=== PATIENT | female | born 1975 | race Caucasian/White ===

== ENCOUNTER 2021-01-28 03:14 | Inpatient (IN) | payer OTHER, SELFPAY ==
[2021-01-28] VITALS (7 sets, daily range): BP systolic 133–188; BP diastolic 78–91; PULSE 62–72; RESP 16; TEMP 36.1–36.7; O2SAT 96–98
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
--- NOTE | 2021-01-28 08:58 | PC.NURSE ---
pt signed a 3 day notice today on 01/28/2021. up on 02/02/2021.
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
[2021-01-28] MEDS: lisinopriL 5 MG TABLET PO (12:27)
[2021-01-28] MEDS: DULoxetine HCl 60 MG CAPSULE.DR PO ×2 (12:27→21:05)
[2021-01-28] MEDS: Levothyroxine Sodium 88 MCG TABLET PO (12:37)
[2021-01-28] MEDS: Metoprolol Succinate ER 100 MG TAB.ER.24H PO (12:38)
[2021-01-28] MEDS: Clopidogrel Bisulfate 75 MG TABLET PO (12:39)
[2021-01-28] MEDS: Gabapentin 100 MG CAPSULE PO ×2 (12:39→21:05)
[2021-01-28] MEDS: Fluticasone Propionate Nasal 16 GM SPRAY 2 SPRAY NOSTRIL-B (12:40)
[2021-01-28] MEDS: cloNIDine HCL 0.1 MG TABLET PO ×2 (12:49→17:10)
[2021-01-28] MEDS: QUEtiapine Fumarate 100 MG TABLET PO (21:05)
[2021-01-28] MEDS: Atorvastatin Calcium 80 MG TABLET PO (21:05)
[2021-01-28] MEDS: Doxazosin Mesylate 1 MG TABLET 3 MG PO (21:05)
--- NOTE | 2021-01-28 21:51 | PC.NURSE ---
Pt roommate came out of her room and notified staff that she was attempting to tie her bed sheet around her neck between the bed and wall. Staff responded and found her with her bed sheet loosely around her neck, gripping it closely around her neck. Staff grabbed the bed sheet from her. Pt was not in respiratory distress and no redness or markings noted around her neck. Pt reported I am just upset that my dog was taken away . Vitals were taken- WNL. A 1:1 person was placed at this time. After pt was calm t/w was able to speak with her and completed with her assistance a treatment plan to contract for safety. Pt signed treatment plan and agreed to stay visible. Contract placed in chart and safety tool updated. Pt has been visible in the kitchen and participated in group this evening after episode. Placed on 5 min locked bathroom. Sheets and pillowcases were removed from her possession per agreement. Provided heavy blankets for safety and comfort. Nursing supervisor engines road and MD concrete rod buster notified of all events. Will continue to monitor closely.
[2021-01-29 06:00] VITALS: BP 146/88; PULSE 90; RESP 20; TEMP 36; O2SAT 98
[2021-01-29] MEDS: Gabapentin 100 MG CAPSULE PO ×2 (08:28→20:47)
[2021-01-29] MEDS: ARIPiprazole 5 MG TABLET PO (08:29)
[2021-01-29] MEDS: Clopidogrel Bisulfate 75 MG TABLET PO (08:29)
[2021-01-29] MEDS: DULoxetine HCl 60 MG CAPSULE.DR PO ×2 (08:29→20:48)
[2021-01-29] MEDS: lisinopriL 5 MG TABLET PO (08:29)
[2021-01-29] MEDS: Metoprolol Succinate ER 100 MG TAB.ER.24H PO (08:30)
[2021-01-29] MEDS: Levothyroxine Sodium 88 MCG TABLET PO (08:30)
[2021-01-29] MEDS: Fluticasone Propionate Nasal 16 GM SPRAY 2 SPRAY NOSTRIL-B (08:31)
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
[2021-01-29] MEDS: cloNIDine HCL 0.1 MG TABLET PO (15:02)
--- NOTE | 2021-01-29 16:48 | HO.PSYCHPN ---
Subjective Subjective Date of Service: 01/29/21 Reason For Visit: 296.30/F33.9 - major depressive disorder Subjective Notes: 3 Day (02/03/21) Healthcare Proxy: No Guardianship: No Medical Problems Affecting Mental Status: No Interim History: Guarded, irritable, evasive- I am leaving on 02/03. Declines medication adjustments, declines to discuss precipitants to admission. Focus in on her dog, Sofia May Facto, and not knowing if she is OK. We were able to call the kennel and they assured pt that Sofia is homesick but well and they will be taking care of her until pt is discharged. Pt more relieved after this-states he med regime works, that the crisis team over-reacted to her presenting issues and she does feel better- but this place is insane (appropriate response to an intense day). Medication Compliance: Yes Side effects from medications: No Attending Groups: No Review of Systems Acute medical concerns: No Medical Review of Systems: unchanged Review of Systems Reports behavioral changes Psychiatric: Reports anxiety, Reports behavioral changes, Reports depression, Reports irritability and Reports suicidal ideation (denies) Mental Status Exam Mental Status Exam Patient Appearance: Disheveled Patient Orientation: Person, Place, Time and Situation Level of Consciousness: Alert Patient Behavior: Guarded and Good Eye Contact Mood Description: Constricted Affect Description: Constricted Patient Cognition Impaired: No Ability to Follow Directions: Good Speech Pattern: Spontaneous Speech Memory Description: Intact Hallucinations: None Delusions: Not Present Perceptual Disturbances: Depersonalization Thought Process: Goal Oriented Thought Content: positive for Circumstantial and positive for Goal Oriented Depressive Symptoms: Increased Anxiety, Increased Irritability and Thoughts of /Suicide (denies) Judgement: Fair Diagnostics Vital Signs (24Hr): Vital Signs - 24 hr 01/28/21 17:10 01/28/21 17:14 01/28/21 21:05 Temperature 98.0 F Pulse Rate 62 62 62 Respiratory Rate Blood Pressure 188/80 H 188/80 H 146/78 H Pulse Oximetry 98 01/29/21 06:00 Temperature 96.8 F Pulse Rate 90 Respiratory Rate 20 Blood Pressure 146/88 H Pulse Oximetry 98 Medications Medications Current Medications Acetaminophen (Acetaminophen 325 Mg Tablet) 650 mg PO Q6H PRN PRN Reason: Headache/Pain Mild Scale (1-3) Al Hydroxide/Mg Hydroxide (Magnesium Hydrox/Alum Hydrox 30 Ml Oral.Susp) 30 ml PO Q6H PRN PRN Reason: Heartburn/Nausea Aripiprazole (Aripiprazole 5 Mg Tablet) 5 mg PO DAILY [facility] Last Admin: 01/29/21 08:29 Dose: 5 mg Documented by: Atorvastatin Calcium (Atorvastatin Calcium 80 Mg Tablet) 80 mg PO BEDTIME [facility] Last Admin: 01/28/21 21:05 Dose: 80 mg Documented by: Clonidine HCl (Clonidine Hcl 0.1 Mg Tablet) 0.1 mg PO TID PRN; Protocol PRN Reason: Anxiety Last Admin: 01/29/21 15:02 Dose: 0.1 mg Documented by: Clopidogrel Bisulfate (Clopidogrel Bisulfate 75 Mg Tablet) 75 mg PO DAILY [facility] Last Admin: 01/29/21 08:29 Dose: 75 mg Documented by: Doxazosin Mesylate (Doxazosin Mesylate 1 Mg Tablet) 3 mg PO BEDTIME [facility]; Protocol Last Admin: 01/28/21 21:05 Dose: 3 mg Documented by: Duloxetine HCl (Duloxetine Hcl 60 Mg Capsule.Dr) 60 mg PO BID [facility] Last Admin: 01/29/21 08:29 Dose: 60 mg Documented by: Fluticasone Propionate (Fluticasone Propionate Nasal 16 Gm [place]) 2 spray NOSTRIL-B DAILY [facility] Last Admin: 01/29/21 08:31 Dose: 2 spray Documented by: Gabapentin (Gabapentin 100 Mg Capsule) 100 mg PO BID [facility] Last Admin: 01/29/21 08:28 Dose: 100 mg Documented by: Hydroxyzine HCl (Hydroxyzine Hcl 25 Mg Tablet) 25 mg PO BEDTIME PRN PRN Reason: Anxiety Levothyroxine Sodium (Levothyroxine Sodium 88 Mcg Tablet) 88 mcg PO DAILY [facility] Last Admin: 01/29/21 08:30 Dose: 88 mcg Documented by: Lisinopril (Lisinopril 5 Mg Tablet) 5 mg PO DAILY [facility]; Protocol Last Admin: 01/29/21 08:29 Dose: 5 mg Documented by: Magnesium Hydroxide (Milk Of Magnesia 30 Ml Oral.Susp) 30 ml PO DAILY PRN PRN Reason: Constipation Metoprolol Succinate (Metoprolol Succinate Er 100 Mg Tab.Er.24h) 100 mg PO DAILY [facility]; Protocol Last Admin: 01/29/21 08:30 Dose: 100 mg Documented by: Nicotine Polacrilex (Nicotine Polacrilex 2 Mg Gum) 2 mg BUCCAL Q2H PRN PRN Reason: Nicotine Cravings Quetiapine Fumarate (Quetiapine Fumarate 100 Mg Tablet) 100 mg PO BEDTIME [facility] Last Admin: 01/28/21 21:05 Dose: 100 mg Documented by: Trazodone HCl (Trazodone Hcl 50 Mg Tablet) 50 mg PO BEDTIME PRN PRN Reason: Insomnia Allergies Allergies Allergy/AdvReac Type Severity Reaction Status Date / Time amphetamine [From Adderall] Allergy Unknown unknown Unverified 01/28/21 12:31 aspirin Allergy Unknown unknown Unverified 01/28/21 12:30 black pepper Allergy Unknown unknown Unverified 01/28/21 12:32 dextroamphetamine Allergy Unknown unknown Unverified 01/28/21 12:31 [From Adderall] fluoxetine [From Prozac] Allergy Unknown Unknown Unverified 01/28/21 12:30 trazodone Allergy Unknown Unknown Unverified 01/28/21 12:31 kcl Allergy Unknown throat Uncoded 01/28/21 12:31 irritation/ Assessment & Plan Assessment & Plan (1) PTSD (post-traumatic stress disorder): Status: Acute Code(s): F43.10 - Post-traumatic stress disorder, unspecified (2) Major depressive disorder, recurrent severe without psychotic features: Status: Acute Code(s): F33.2 - Major depressive disorder, recurrent severe without psychotic features Assessment and Plan: -Continue current regime -Attempt to form alliance -Collateral contact Assessment and Plan: 45-year-old female with hypertension, hyperlipidemia, CAD status post [place] about 4 years ago she takes Plavix, allergic to aspirin, here with depression with SI 1/ CAD-- no chest pain, no shortness of breath. Continue med with Plavix, metoprolol, statin 2/ hypertension continue metoprolol, lisinopril, clonidine now, 3/ hypothyroidism continue levothyroxine 4/hyperlipidemia continue Lipitor 5/depression/suicidal ideation-- management by psych. I spent 40 minutes with the patient and/or on the patient floor today, greater than?50% of which was spent counseling/coordinating care. Patient educated on: therapeutic strategies Informed Consent: understands and further education needed Reason for contiued inpatient stay Substantial Risk for: harm to self, inability to function and rapid decompensation
[2021-01-29 20:30] VITALS: BP 118/81; PULSE 76; TEMP 36.7
[2021-01-29 20:46] VITALS: BP 118/81; PULSE 76
[2021-01-29] MEDS: Doxazosin Mesylate 1 MG TABLET 3 MG PO (20:46)
[2021-01-29] MEDS: QUEtiapine Fumarate 100 MG TABLET PO (20:46)
[2021-01-29] MEDS: Atorvastatin Calcium 80 MG TABLET PO (20:47)
[2021-01-30 06:00] VITALS: BP 124/58; PULSE 86; RESP 18; TEMP 36.9; O2SAT 95
[2021-01-30 08:43] VITALS: BP 144/90; PULSE 81
[2021-01-30] MEDS: Levothyroxine Sodium 88 MCG TABLET PO (08:43)
[2021-01-30] MEDS: Clopidogrel Bisulfate 75 MG TABLET PO (08:43)
[2021-01-30] MEDS: ARIPiprazole 5 MG TABLET PO (08:43)
[2021-01-30] MEDS: lisinopriL 5 MG TABLET PO (08:43)
[2021-01-30] MEDS: Metoprolol Succinate ER 100 MG TAB.ER.24H PO (08:43)
[2021-01-30] MEDS: DULoxetine HCl 60 MG CAPSULE.DR PO ×2 (08:43→20:14)
[2021-01-30] MEDS: Gabapentin 100 MG CAPSULE PO ×2 (08:44→11:07)
[2021-01-30] MEDS: Fluticasone Propionate Nasal 16 GM SPRAY 2 SPRAY NOSTRIL-B (08:45)
[2021-01-30 08:47] VITALS: BP 144/90; PULSE 81
[2021-01-30] MEDS: cloNIDine HCL 0.1 MG TABLET PO ×2 (08:47→16:19)
--- NOTE | 2021-01-30 12:30 | P.PNPSI_ITS ---
Subjective Subjective Date of Service: 01/30/21 Reason For Visit: 296.30/F33.9 - major depressive disorder Subjective Notes: 3 Day Healthcare Proxy: No Guardianship: No Medical Problems Affecting Mental Status: No Interim History: Patient found lying between bed and wall- feels safer there- Reports feeling better but mentioned we have her medications wrong- gabapentin was 100 bid and 200mg qhs which - I changed it to Also discussed with pt inc abilifnina to 7.5mg - which she agreed to don't know if it would help her flashbacks/ but might help depression denies current si/sib will unlock bathroom and see how that day goes for her tomorrow may be able to advance to 15min checks Medication Compliance: Yes Side effects from medications: No Attending Groups: No Review of Systems Acute medical concerns: No Medical Review of Systems: unchanged Review of Systems Review of Systems reviewed cpe by dr espinosa Mental Status Exam Mental Status Exam Narrative: patient with better eye contact today, denying current sib/si feels could talk to staff if felt unsafe no further attempts to strangle herself with sheets/pillow case. Patient Appearance: Appropriate Patient Orientation: Person, Place, Time and Situation Level of Consciousness: Awake Patient Behavior: Guarded, Cooperative and Passive Mood Description: Anxious Affect Description: Blunted Patient Cognition Impaired: No Ability to Follow Directions: Good Speech Pattern: Clear Hallucinations: Visual (still having flashbacks) Delusions: Not Present Thought Process: Intact Thought Content: positive for Intact Judgement: Fair Diagnostics Vital Signs (24Hr): Vital Signs - 24 hr 01/29/21 20:30 01/29/21 20:46 01/30/21 06:00 Temperature 98.1 F 98.4 F Pulse Rate 76 76 86 Respiratory Rate 18 Blood Pressure 118/81 118/81 124/58 L Pulse Oximetry 95 01/30/21 08:43 01/30/21 08:47 Temperature Pulse Rate 81 81 Respiratory Rate Blood Pressure 144/90 H 144/90 H Pulse Oximetry Medications Medications Current Medications Acetaminophen (Acetaminophen 325 Mg Tablet) 650 mg PO Q6H PRN PRN Reason: Headache/Pain Mild Scale (1-3) Al Hydroxide/Mg Hydroxide (Magnesium Hydrox/Alum Hydrox 30 Ml Oral.Susp) 30 ml PO Q6H PRN PRN Reason: Heartburn/Nausea Aripiprazole (Aripiprazole 5 Mg Tablet) 5 mg PO DAILY [facility] Last Admin: 01/30/21 08:43 Dose: 5 mg Documented by: Atorvastatin Calcium (Atorvastatin Calcium 80 Mg Tablet) 80 mg PO BEDTIME [facility] Last Admin: 01/29/21 20:47 Dose: 80 mg Documented by: Clonidine HCl (Clonidine Hcl 0.1 Mg Tablet) 0.1 mg PO TID PRN; Protocol PRN Reason: Anxiety Last Admin: 01/30/21 08:47 Dose: 0.1 mg Documented by: Clopidogrel Bisulfate (Clopidogrel Bisulfate 75 Mg Tablet) 75 mg PO DAILY [facility] Last Admin: 01/30/21 08:43 Dose: 75 mg Documented by: Doxazosin Mesylate (Doxazosin Mesylate 1 Mg Tablet) 3 mg PO BEDTIME [facility]; Protocol Last Admin: 01/29/21 20:46 Dose: 3 mg Documented by: Duloxetine HCl (Duloxetine Hcl 60 Mg Capsule.Dr) 60 mg PO BID [facility] Last Admin: 01/30/21 08:43 Dose: 60 mg Documented by: Fluticasone Propionate (Fluticasone Propionate Nasal 16 Gm [place]) 2 spray NOSTRIL-B DAILY [facility] Last Admin: 01/30/21 08:45 Dose: 2 spray Documented by: Gabapentin (Gabapentin 100 Mg Capsule) 200 mg PO BEDTIME [facility] Gabapentin (Gabapentin 100 Mg Capsule) 100 mg PO TIDWM [facility] Last Admin: 01/30/21 11:07 Dose: 100 mg Documented by: Hydroxyzine HCl (Hydroxyzine Hcl 25 Mg Tablet) 25 mg PO BEDTIME PRN PRN Reason: Anxiety Levothyroxine Sodium (Levothyroxine Sodium 88 Mcg Tablet) 88 mcg PO DAILY [facility] Last Admin: 01/30/21 08:43 Dose: 88 mcg Documented by: Lisinopril (Lisinopril 5 Mg Tablet) 5 mg PO DAILY [facility]; Protocol Last Admin: 01/30/21 08:43 Dose: 5 mg Documented by: Magnesium Hydroxide (Milk Of Magnesia 30 Ml Oral.Susp) 30 ml PO DAILY PRN PRN Reason: Constipation Metoprolol Succinate (Metoprolol Succinate Er 100 Mg Tab.Er.24h) 100 mg PO DAILY [facility]; Protocol Last Admin: 01/30/21 08:43 Dose: 100 mg Documented by: Nicotine Polacrilex (Nicotine Polacrilex 2 Mg Gum) 2 mg BUCCAL Q2H PRN PRN Reason: Nicotine Cravings Quetiapine Fumarate (Quetiapine Fumarate 100 Mg Tablet) 100 mg PO BEDTIME [facility] Last Admin: 01/29/21 20:46 Dose: 100 mg Documented by: Trazodone HCl (Trazodone Hcl 50 Mg Tablet) 50 mg PO BEDTIME PRN PRN Reason: Insomnia Allergies Allergies Allergy/AdvReac Type Severity Reaction Status Date / Time amphetamine [From Adderall] Allergy Unknown unknown Unverified 01/28/21 12:31 aspirin Allergy Unknown unknown Unverified 01/28/21 12:30 black pepper Allergy Unknown unknown Unverified 01/28/21 12:32 dextroamphetamine Allergy Unknown unknown Unverified 01/28/21 12:31 [From Adderall] fluoxetine [From Prozac] Allergy Unknown Unknown Unverified 01/28/21 12:30 trazodone Allergy Unknown Unknown Unverified 01/28/21 12:31 kcl Allergy Unknown throat Uncoded 01/28/21 12:31 irritation/ Assessment & Plan Assessment & Plan (1) PTSD (post-traumatic stress disorder): Status: Acute Code(s): F43.10 - Post-traumatic stress disorder, unspecified Assessment and Plan: ongoing flashbacks working on calming herself- making herself feel safe (2) Major depressive disorder, recurrent severe without psychotic features: Status: Acute Code(s): F33.2 - Major depressive disorder, recurrent severe without psychotic features Assessment and Plan: -Continue current regime -Attempt to form alliance -Collateral contact Assessment and Plan: Pt feeling improved with care, and willing to inc abilify I spent minutes with the patient and/or on the patient floor today, greater than?50% of which was spent counseling/coordinating care. Patient educated on: medication risk/benefits Informed Consent: understands Reason for contiued inpatient stay Substantial Risk for: harm to self, inability to function and rapid decompensation
[2021-01-30] MEDS: ARIPiprazole 2 MG TABLET PO (13:48)
[2021-01-30 16:19] VITALS: BP 131/84; PULSE 78
[2021-01-30 19:20] VITALS: BP 102/57; PULSE 98; RESP 18; TEMP 36.8; O2SAT 97
[2021-01-30] MEDS: QUEtiapine Fumarate 100 MG TABLET PO (20:13)
[2021-01-30] MEDS: Atorvastatin Calcium 80 MG TABLET PO (20:13)
[2021-01-30] MEDS: Gabapentin 100 MG CAPSULE 200 MG PO (20:13)
[2021-01-30 20:14] VITALS: BP 102/57; PULSE 79
[2021-01-30] MEDS: Doxazosin Mesylate 1 MG TABLET 3 MG PO (20:14)
[2021-01-31 06:00] VITALS: BP 106/56; PULSE 89; RESP 16; TEMP 36.4; O2SAT 96
[2021-01-31] MEDS: Fluticasone Propionate Nasal 16 GM SPRAY 2 SPRAY NOSTRIL-B (08:30)
[2021-01-31] MEDS: DULoxetine HCl 60 MG CAPSULE.DR PO ×2 (08:30→20:17)
[2021-01-31 08:31] VITALS: BP 125/73; PULSE 77
[2021-01-31] MEDS: Levothyroxine Sodium 88 MCG TABLET PO (08:31)
[2021-01-31] MEDS: Clopidogrel Bisulfate 75 MG TABLET PO (08:31)
[2021-01-31] MEDS: ARIPiprazole 5 MG TABLET 7.5 MG PO (08:31)
[2021-01-31] MEDS: Metoprolol Succinate ER 100 MG TAB.ER.24H PO (08:31)
[2021-01-31] MEDS: Gabapentin 100 MG CAPSULE PO ×2 (08:31→13:41)
[2021-01-31] MEDS: lisinopriL 5 MG TABLET PO (08:31)
[2021-01-31 08:39] VITALS: BP 125/73; PULSE 77
[2021-01-31] MEDS: cloNIDine HCL 0.1 MG TABLET PO (08:39)
--- NOTE | 2021-01-31 11:03 | HO.PSYCHPN ---
Subjective Subjective Date of Service: 01/31/21 Reason For Visit: 296.30/F33.9 - major depressive disorder Subjective Notes: 3 Day Healthcare Proxy: No Guardianship: No Medical Problems Affecting Mental Status: No Interim History: Pt reports disappointment about groups and coping not happening this weekend- went to group and did psyched re medications REquested haldol prn 1mg suggested she try it with benztropine- Medication Compliance: Yes Side effects from medications: No Attending Groups: Yes Review of Systems Acute medical concerns: No Medical Review of Systems: unchanged Mental Status Exam Mental Status Exam Narrative: feeling helped by roommate conversations Patient Appearance: Well Grooomed Patient Orientation: Person, Place and Situation Level of Consciousness: Awake Patient Behavior: Appropriate Mood Description: Withdrawn and Anxious Affect Description: Constricted Patient Cognition Impaired: No Ability to Follow Directions: Good Speech Pattern: Clear Hallucinations: None Delusions: Not Present Thought Process: Intact Thought Content: positive for Intact Depressive Symptoms: Unhappiness Judgement: Fair Diagnostics Vital Signs (24Hr): Vital Signs - 24 hr 01/30/21 16:19 01/30/21 19:20 01/30/21 20:14 Temperature 98.3 F Pulse Rate 78 98 79 Respiratory Rate 18 Blood Pressure 131/84 102/57 L 102/57 L Pulse Oximetry 97 01/31/21 06:00 01/31/21 08:31 01/31/21 08:39 Temperature 97.6 F Pulse Rate 89 77 77 Respiratory Rate 16 Blood Pressure 106/56 L 125/73 125/73 Pulse Oximetry 96 Medications Medications Current Medications Acetaminophen (Acetaminophen 325 Mg Tablet) 650 mg PO Q6H PRN PRN Reason: Headache/Pain Mild Scale (1-3) Al Hydroxide/Mg Hydroxide (Magnesium Hydrox/Alum Hydrox 30 Ml Oral.Susp) 30 ml PO Q6H PRN PRN Reason: Heartburn/Nausea Aripiprazole (Aripiprazole 5 Mg Tablet) 7.5 mg PO DAILY [facility] Last Admin: 01/31/21 08:31 Dose: 7.5 mg Documented by: Atorvastatin Calcium (Atorvastatin Calcium 80 Mg Tablet) 80 mg PO BEDTIME [facility] Last Admin: 01/30/21 20:13 Dose: 80 mg Documented by: Clonidine HCl (Clonidine Hcl 0.1 Mg Tablet) 0.1 mg PO TID PRN; Protocol PRN Reason: Anxiety Last Admin: 01/31/21 08:39 Dose: 0.1 mg Documented by: Clopidogrel Bisulfate (Clopidogrel Bisulfate 75 Mg Tablet) 75 mg PO DAILY [facility] Last Admin: 01/31/21 08:31 Dose: 75 mg Documented by: Doxazosin Mesylate (Doxazosin Mesylate 1 Mg Tablet) 3 mg PO BEDTIME [facility]; Protocol Last Admin: 01/30/21 20:14 Dose: 3 mg Documented by: Duloxetine HCl (Duloxetine Hcl 60 Mg Capsule.Dr) 60 mg PO BID [facility] Last Admin: 01/31/21 08:30 Dose: 60 mg Documented by: Fluticasone Propionate (Fluticasone Propionate Nasal 16 Gm [place]) 2 spray NOSTRIL-B DAILY [facility] Last Admin: 01/31/21 08:30 Dose: 2 spray Documented by: Gabapentin (Gabapentin 100 Mg Capsule) 200 mg PO BEDTIME [facility] Last Admin: 01/30/21 20:13 Dose: 200 mg Documented by: Gabapentin (Gabapentin 100 Mg Capsule) 100 mg PO BID@0830,1430 [facility] Last Admin: 01/31/21 08:31 Dose: 100 mg Documented by: Hydroxyzine HCl (Hydroxyzine Hcl 25 Mg Tablet) 25 mg PO BEDTIME PRN PRN Reason: Anxiety Levothyroxine Sodium (Levothyroxine Sodium 88 Mcg Tablet) 88 mcg PO DAILY [facility] Last Admin: 01/31/21 08:31 Dose: 88 mcg Documented by: Lisinopril (Lisinopril 5 Mg Tablet) 5 mg PO DAILY [facility]; Protocol Last Admin: 01/31/21 08:31 Dose: 5 mg Documented by: Magnesium Hydroxide (Milk Of Magnesia 30 Ml Oral.Susp) 30 ml PO DAILY PRN PRN Reason: Constipation Metoprolol Succinate (Metoprolol Succinate Er 100 Mg Tab.Er.24h) 100 mg PO DAILY [facility]; Protocol Last Admin: 01/31/21 08:31 Dose: 100 mg Documented by: Nicotine Polacrilex (Nicotine Polacrilex 2 Mg Gum) 2 mg BUCCAL Q2H PRN PRN Reason: Nicotine Cravings Quetiapine Fumarate (Quetiapine Fumarate 100 Mg Tablet) 100 mg PO BEDTIME [facility] Last Admin: 01/30/21 20:13 Dose: 100 mg Documented by: Trazodone HCl (Trazodone Hcl 50 Mg Tablet) 50 mg PO BEDTIME PRN PRN Reason: Insomnia Allergies Allergies Allergy/AdvReac Type Severity Reaction Status Date / Time amphetamine [From Adderall] Allergy Unknown unknown Unverified 01/28/21 12:31 aspirin Allergy Unknown unknown Unverified 01/28/21 12:30 black pepper Allergy Unknown unknown Unverified 01/28/21 12:32 dextroamphetamine Allergy Unknown unknown Unverified 01/28/21 12:31 [From Adderall] fluoxetine [From Prozac] Allergy Unknown Unknown Unverified 01/28/21 12:30 trazodone Allergy Unknown Unknown Unverified 01/28/21 12:31 kcl Allergy Unknown throat Uncoded 01/28/21 12:31 irritation/ Assessment & Plan Assessment & Plan (1) PTSD (post-traumatic stress disorder): Status: Acute Code(s): F43.10 - Post-traumatic stress disorder, unspecified Assessment and Plan: ongoing flashbacks working on calming herself- making herself feel safe 01/31/21 requesting prn low dose haldol for anxiety=- (2) Major depressive disorder, recurrent severe without psychotic features: Status: Acute Code(s): F33.2 - Major depressive disorder, recurrent severe without psychotic features Assessment and Plan: -Continue current medications continue to encourage groups once more frequent - Assessment and Plan: denies s/e from inc abilify to 7.5mg with add on prn haldol will be on 3 antipsychotics- I spent minutes with the patient and/or on the patient floor today, greater than?50% of which was spent counseling/coordinating care. Patient educated on: medication risk/benefits Informed Consent: understands and further education needed (re 3 antipsychotics- ? dc abilify if haldol helpful) Reason for contiued inpatient stay Substantial Risk for: harm to self
[2021-01-31] MEDS: HaloperidoL 1 MG TABLET PO ×2 (13:41→18:46)
[2021-01-31] MEDS: Benztropine Mesylate 0.5 MG TABLET PO (13:41)
[2021-01-31 18:00] VITALS: BP 131/75; PULSE 73; RESP 16; TEMP 36.8; O2SAT 98
[2021-01-31 20:16] VITALS: BP 134/61; PULSE 73
[2021-01-31] MEDS: Doxazosin Mesylate 1 MG TABLET 3 MG PO (20:16)
[2021-01-31] MEDS: QUEtiapine Fumarate 100 MG TABLET PO (20:17)
[2021-01-31] MEDS: Gabapentin 100 MG CAPSULE 200 MG PO (20:17)
[2021-01-31] MEDS: Atorvastatin Calcium 80 MG TABLET PO (20:17)
[2021-02-01 06:00] VITALS: BP 149/63; PULSE 86; RESP 18; TEMP 37.1; O2SAT 96
[2021-02-01 08:54] VITALS: BP 149/63; PULSE 86
[2021-02-01] MEDS: Fluticasone Propionate Nasal 16 GM SPRAY 2 SPRAY NOSTRIL-B (08:54)
[2021-02-01] MEDS: Metoprolol Succinate ER 100 MG TAB.ER.24H PO (08:54)
[2021-02-01 08:55] VITALS: BP 149/63; PULSE 86
[2021-02-01] MEDS: DULoxetine HCl 60 MG CAPSULE.DR PO ×2 (08:55→19:54)
[2021-02-01] MEDS: lisinopriL 5 MG TABLET PO (08:55)
[2021-02-01] MEDS: Clopidogrel Bisulfate 75 MG TABLET PO (08:55)
[2021-02-01] MEDS: Gabapentin 100 MG CAPSULE PO ×2 (08:56→14:56)
[2021-02-01] MEDS: HaloperidoL 1 MG TABLET PO ×3 (08:56→17:40)
[2021-02-01] MEDS: ARIPiprazole 5 MG TABLET 7.5 MG PO (08:56)
[2021-02-01] MEDS: Levothyroxine Sodium 88 MCG TABLET PO (09:21)
--- NOTE | 2021-02-01 13:14 | P.PNPSI_ITS ---
Subjective Subjective Date of Service: 02/01/21 Reason For Visit: 296.30/F33.9 - major depressive disorder Subjective Notes: Conditional Voluntary and 3 Day Healthcare Proxy: No Guardianship: No Medical Problems Affecting Mental Status: No Interim History: TDSiri 02/02/21. Pt denies SI. Reports she is tolerating Abilify increase and finds prn Haldol very helpful. Discussed use of three antipsychotic agents (Abilify, Haldol, Seroquel). Education provided on use of multiple agents. Pt will discuss with her prescriber, however, she believes she may stop Abilify-encouraged to discuss with out patient team-she finds Haldol stronger with improved targeting of symptoms. Discussed diagnostics prior to discharge-she agrees-will order and follow with pt upon discharge. Pt participating in groups-team reports she did very well in medication education group over the weekend. Pt looking to attend more groups-states she wishes there were more coping skills groups on the unit. Feels prepared to discharge, pleased to be going to flower buncher or picker her service dog Sofia. Pt reports feeling safe and prepared to leave. Message left for pt's OP team [phone] to review admission and changes to regime. Medication Compliance: Yes Side effects from medications: No Attending Groups: Yes Review of Systems Acute medical concerns: No Medical Review of Systems: unchanged Review of Systems Psychiatric: Reports no additional psychiatric complaints Mental Status Exam Mental Status Exam Patient Appearance: Appropriate Patient Orientation: Person, Place, Time and Situation Level of Consciousness: Awake and Alert Patient Behavior: Appropriate, Talkative, Cooperative and Good Eye Contact Mood Description: Appropriate Affect Description: Appropriate Patient Cognition Impaired: No Ability to Follow Directions: Good Speech Pattern: Spontaneous Speech Memory Description: Intact Hallucinations: None Delusions: Not Present Thought Process: Intact and Goal Oriented Thought Content: positive for Intact, positive for Goal Oriented and positive for Suicidal Ideation (denies) Judgement: Good Diagnostics Vital Signs (24Hr): Vital Signs - 24 hr 01/31/21 18:00 01/31/21 20:16 02/01/21 06:00 Temperature 98.2 F 98.7 F Pulse Rate 73 73 86 Respiratory Rate 16 18 Blood Pressure 131/75 134/61 149/63 H Pulse Oximetry 98 96 02/01/21 08:54 02/01/21 08:55 Temperature Pulse Rate 86 86 Respiratory Rate Blood Pressure 149/63 H 149/63 H Pulse Oximetry Labs Labs: On 02/02/21 will order EKG, CBCD, CMP, A1C, Lipid Panel, TSH, B12, Folate. Will follow with pt upon discharge. No diagnostic results found when pt was transferred from her local emergency dept. Medications Medications Current Medications Acetaminophen (Acetaminophen 325 Mg Tablet) 650 mg PO Q6H PRN PRN Reason: Headache/Pain Mild Scale (1-3) Al Hydroxide/Mg Hydroxide (Magnesium Hydrox/Alum Hydrox 30 Ml Oral.Susp) 30 ml PO Q6H PRN PRN Reason: Heartburn/Nausea Aripiprazole (Aripiprazole 5 Mg Tablet) 7.5 mg PO DAILY [facility] Last Admin: 02/01/21 08:56 Dose: 7.5 mg Documented by: Atorvastatin Calcium (Atorvastatin Calcium 80 Mg Tablet) 80 mg PO BEDTIME [facility] Last Admin: 01/31/21 20:17 Dose: 80 mg Documented by: Benztropine Mesylate (Benztropine Mesylate 0.5 Mg Tablet) 0.5 mg PO TID PRN PRN Reason: Extrapyramidal Effects Last Admin: 01/31/21 13:41 Dose: 0.5 mg Documented by: Clonidine HCl (Clonidine Hcl 0.1 Mg Tablet) 0.1 mg PO TID PRN; Protocol PRN Reason: Anxiety Last Admin: 01/31/21 08:39 Dose: 0.1 mg Documented by: Clopidogrel Bisulfate (Clopidogrel Bisulfate 75 Mg Tablet) 75 mg PO DAILY [facility] Last Admin: 02/01/21 08:55 Dose: 75 mg Documented by: Doxazosin Mesylate (Doxazosin Mesylate 1 Mg Tablet) 3 mg PO BEDTIME [facility]; Protocol Last Admin: 01/31/21 20:16 Dose: 3 mg Documented by: Duloxetine HCl (Duloxetine Hcl 60 Mg Capsule.Dr) 60 mg PO BID [facility] Last Admin: 02/01/21 08:55 Dose: 60 mg Documented by: Fluticasone Propionate (Fluticasone Propionate Nasal 16 Gm [place]) 2 spray NOSTRIL-B DAILY [facility] Last Admin: 02/01/21 08:54 Dose: 2 spray Documented by: Gabapentin (Gabapentin 100 Mg Capsule) 200 mg PO BEDTIME [facility] Last Admin: 01/31/21 20:17 Dose: 200 mg Documented by: Gabapentin (Gabapentin 100 Mg Capsule) 100 mg PO BID@0830,1430 [facility] Last Admin: 02/01/21 08:56 Dose: 100 mg Documented by: Haloperidol (Haloperidol 1 Mg Tablet) 1 mg PO Q4H PRN PRN Reason: Anxiety Last Admin: 02/01/21 12:43 Dose: 1 mg Documented by: Hydroxyzine HCl (Hydroxyzine Hcl 25 Mg Tablet) 25 mg PO BEDTIME PRN PRN Reason: Anxiety Levothyroxine Sodium (Levothyroxine Sodium 88 Mcg Tablet) 88 mcg PO DAILY [facility] Last Admin: 02/01/21 09:21 Dose: 88 mcg Documented by: Lisinopril (Lisinopril 5 Mg Tablet) 5 mg PO DAILY [facility]; Protocol Last Admin: 02/01/21 08:55 Dose: 5 mg Documented by: Magnesium Hydroxide (Milk Of Magnesia 30 Ml Oral.Susp) 30 ml PO DAILY PRN PRN Reason: Constipation Metoprolol Succinate (Metoprolol Succinate Er 100 Mg Tab.Er.24h) 100 mg PO DAILY [facility]; Protocol Last Admin: 02/01/21 08:54 Dose: 100 mg Documented by: Nicotine Polacrilex (Nicotine Polacrilex 2 Mg Gum) 2 mg BUCCAL Q2H PRN PRN Reason: Nicotine Cravings Quetiapine Fumarate (Quetiapine Fumarate 100 Mg Tablet) 100 mg PO BEDTIME [facility] Last Admin: 01/31/21 20:17 Dose: 100 mg Documented by: Trazodone HCl (Trazodone Hcl 50 Mg Tablet) 50 mg PO BEDTIME PRN PRN Reason: Insomnia Allergies Allergies Allergy/AdvReac Type Severity Reaction Status Date / Time aspirin Allergy Severe Seizure Verified 01/31/21 21:41 black pepper Allergy Severe Swelling Verified 01/31/21 21:41 fluoxetine [From Prozac] Allergy Severe Unknown Verified 01/31/21 21:41 amphetamine [From Adderall] Allergy Mild Vomiting Verified 01/31/21 21:41 dextroamphetamine Allergy Mild Vomiting Verified 01/31/21 21:41 [From Adderall] trazodone Allergy Mild Involuntary Verified 01/31/21 21:41 Spasms kcl Allergy Mild Vomiting Uncoded 01/31/21 21:41 Assessment & Plan Assessment & Plan (1) PTSD (post-traumatic stress disorder): Status: Acute Code(s): F43.10 - Post-traumatic stress disorder, unspecified Assessment and Plan: Finding prn Haldol helpful (2) Major depressive disorder, recurrent severe without psychotic features: Status: Acute Code(s): F33.2 - Major depressive disorder, recurrent severe without psychotic features Assessment and Plan: -Continue current medications continue to encourage groups once more frequent - Assessment and Plan: TDN expires 02/02/21. Pt reports no SI. Planning discharge to return to out pt team I spent 35 minutes with the patient and/or on the patient floor today, greater than?50% of which was spent counseling/coordinating care. Patient educated on: diagnosis, medication risk/benefits, therapeutic strategies and medical condition Informed Consent: understands Reason for contiued inpatient stay Substantial Risk for: stable for discharge
[2021-02-01] MEDS: Benztropine Mesylate 0.5 MG TABLET PO (17:40)
[2021-02-01 17:44] VITALS: BP 130/73; PULSE 73; TEMP 36.4; O2SAT 98
[2021-02-01 19:52] VITALS: BP 130/73; PULSE 73
[2021-02-01] MEDS: Doxazosin Mesylate 1 MG TABLET 3 MG PO (19:52)
[2021-02-01] MEDS: Atorvastatin Calcium 80 MG TABLET PO (19:53)
[2021-02-01] MEDS: QUEtiapine Fumarate 100 MG TABLET PO (19:53)
[2021-02-01] MEDS: Gabapentin 100 MG CAPSULE 200 MG PO (19:53)
--- NOTE | 2021-02-02 | ECG_ITS ---
Test Reason : htn, antipsychotic meds Blood Pressure : / mmHG Vent. Rate : 085 BPM Atrial Rate : 085 BPM P-R Int : 166 ms QRS Dur : 082 ms QT Int : 390 ms P-R-T Axes : 049 -15 022 degrees QTc Int : 464 ms Normal sinus rhythm Low voltage QRS Poor R wave progression Nonspecific ST abnormality Septal leads Lateral leads Abnormal ECG No previous ECGs available Referred By: Juju Vail Electronically Signed By:ADRY DOSHI MD
--- NOTE | 2021-02-02 05:15 | PM.PSYDC ---
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 Attending physician on discharge: Paul Mansfield Discharging clinician: Juju Vail DS: Diagnosis Discharge Diagnosis (1) PTSD (post-traumatic stress disorder): Status: Acute (2) Major depressive disorder, recurrent severe without psychotic features: Status: Acute DS: Medications Discharge Medications Home Medications: Home Medications Medication Instructions Recorded Confirmed atorvastatin 80 mg tablet 80 mg PO BEDTIME 01/28/21 01/28/21 clonidine HCl 0.1 mg tablet 0.1 mg PO TID PRN 01/28/21 01/28/21 clopidogrel 75 mg tablet (Plavix) 75 mg PO DAILY 01/28/21 01/28/21 doxazosin 1 mg tablet 3 mg PO DAILY 01/28/21 01/28/21 duloxetine 60 mg capsule,delayed 60 mg PO BID 01/28/21 01/28/21 release (Cymbalta) fluticasone propionate 44 2 puff INHALATION BID 01/28/21 01/28/21 mcg/actuation HFA aerosol inhaler gabapentin 100 mg tablet 100 mg PO BID 01/28/21 01/28/21 levothyroxine 88 mcg tablet 88 mcg PO DAILY 01/28/21 01/28/21 lisinopril 5 mg tablet 5 mg PO DAILY 01/28/21 01/28/21 metoprolol succinate 100 mg 100 mg PO DAILY 01/28/21 01/28/21 tablet,extended release 24 hr quetiapine 100 mg tablet (Seroquel) 100 mg PO BEDTIME 01/28/21 01/28/21 Previous Rx's Medication Instructions Recorded aripiprazole 5 mg tablet (Abilify) 7.5 mg PO DAILY #0 tab 02/02/21 benztropine 0.5 mg tablet 0.5 mg PO TID PRN #21 tab 02/02/21 fluticasone propionate 50 2 spray INTRANASAL DAILY #0 g 02/02/21 mcg/actuation nasal spray,suspension gabapentin 100 mg capsule 100 mg PO BID@0830,1430 #0 cap 02/02/21 gabapentin 100 mg capsule 200 mg PO BEDTIME #0 cap 02/02/21 haloperidol 1 mg tablet 1 mg PO Q4H PRN #42 tab 02/02/21 nicotine (polacrilex) 2 mg gum 2 mg BUCCAL Q2H PRN #20 ea 02/02/21 Mental Status Exam Mental Status Exam Patient Appearance: Appropriate Patient Orientation: Person, Place, Time and Situation Level of Consciousness: Awake and Alert Patient Behavior: Appropriate, Talkative, Cooperative and Good Eye Contact Mood Description: Appropriate Affect Description: Appropriate Patient Cognition Impaired: No Ability to Follow Directions: Good Speech Pattern: Spontaneous Speech Memory Description: Intact Hallucinations: None Delusions: Not Present Thought Process: Intact and Goal Oriented Thought Content: positive for Intact, positive for Goal Oriented and positive for Suicidal Ideation (denies) Judgement: Good Data Data Completed and Pending Completed studies during hospitalization [Text1]: Pt allowed diagnostics on her discharge day. We will mail her a copy of these with recommended follow up. DS: Summary Hospital Course Hospital Course: Admission to adult psychiatry to address symptoms of PTSD, Depression. Care plan, medication regime and out patient plan of care prior to admission were reviewed. Education was provided regarding management of symptoms, medications and side effects. Pt did well in group work and gave feedback that this is her preferred modality and had hoped for more time in the group setting working on coping skills. Nursing and social worker delinquency prevention worked extensively with patient on collateral contacts, plan of care, education regarding management of symptoms, medications and discharge planning. During the inpatient time, Abilify was titrated to 7.5 mg daily. Haldol 1 mg prn every 4 hours was added. Pt found this to be very helpful and will discuss the possibility of replacing the Abilify with Haldol to combine with Seroquel which she also finds works well. Benztropine was added to assist with side effects. Time spent discussing smoking cessation with patient: 3 to 10 minutes Status at Discharge Cognitive/behavioral status at discharge: non-suicidal, non-psychotic Functional status at discharge: independent ambulation Overall status at discharge: patient is progressing back to baseline Time Spent with Patient Time attestation: Total time spent providing and/or coordinating discharge services: 35 Time spent: Greater than 30 minutes Discharge Plan Discharge Patient Disposition: Home, Self-Care Discharge Diagnosis: PTSD Recurrent Major Depression, Severe Referrals: Psych Prescriber: Natalia Munoz ([facility]) [Other] - 02/10/21 9:00 am (In office) [facility] - 02/04/21 1:15 pm Jean Claude Bennett NP [Primary Care Provider] - 02/22/21 11:00 am (in office) Discharge Medications: New nicotine (polacrilex) 2 mg Gum 2 mg buccal Q2H PRN (Reason: Nicotine Cravings) Qty: 20 RF: 0 benztropine 0.5 mg Tablet 0.5 mg PO TID PRN (Reason: Extrapyramidal Effects) Qty: 21 RF: 0 haloperidol 1 mg Tablet 1 mg PO Q4H PRN (Reason: Anxiety) Qty: 42 RF: 0 gabapentin 100 mg Capsule 200 mg PO BEDTIME Qty: 0 RF: 0 gabapentin 100 mg Capsule 100 mg PO BID@0830,1430 Qty: 0 RF: 0 fluticasone propionate 50 mcg/actuation [place],Suspension 2 spray intranasal DAILY Qty: 0 RF: 0 aripiprazole [Abilify] 5 mg Tablet 7.5 mg PO DAILY Qty: 0 RF: 0 Continued atorvastatin 80 mg Tablet 80 mg PO BEDTIME RF: 0 clonidine HCl 0.1 mg Tablet 0.1 mg PO TID PRN (Reason: Anxiety) RF: 0 metoprolol succinate 100 mg Tablet Extended Release 24 Hr 100 mg PO DAILY RF: 0 clopidogrel [Plavix] 75 mg Tablet 75 mg PO DAILY RF: 0 levothyroxine 88 mcg Tablet 88 mcg PO DAILY RF: 0 lisinopril 5 mg Tablet 5 mg PO DAILY RF: 0 gabapentin 100 mg Tablet 100 mg PO BID RF: 0 doxazosin 1 mg Tablet 3 mg PO DAILY RF: 0 quetiapine [Seroquel] 100 mg Tablet 100 mg PO BEDTIME RF: 0 fluticasone propionate 44 mcg/actuation Hfa Aerosol Inhaler 2 puff INHALATION BID RF: 0 duloxetine [Cymbalta] 60 mg Capsule,Delayed Release(Dr/Ec) 60 mg PO BID RF: 0 Discontinued aripiprazole [Abilify] 5 mg Tablet 5 mg PO DAILY RF: 0 Discharge Orders: Discharge Order (Routine); Ordered 02/02/21 Ordered By: Juju Vail Diet: advance to usual diet Activity on Discharge: As tolerated Stand Alone Forms: Patient Portal Discharge page, Community Support Care Plan Goals: Mood stabilization Health Concerns: PTSD Recurrent Major Depression, Severe Hyperlipidemia Hypothyroidism HTN Plan of Treatment: Attend all scheduled appointments Take medications as directed Utilize local crisis services if needed Call or return if symptoms increase Assessment: Pt with no SI/HI. Future oriented, brighter affect looking forward to return to community and continue treatment. No signs of aggression towards self or others. Discharge Date/Time: 02/02/21 14:25
[2021-02-02 06:00] VITALS: BP 141/68; PULSE 92; TEMP 36.8
[2021-02-02] MEDS: Metoprolol Succinate ER 100 MG TAB.ER.24H PO (08:28)
[2021-02-02] MEDS: Clopidogrel Bisulfate 75 MG TABLET PO (08:29)
[2021-02-02] MEDS: Levothyroxine Sodium 88 MCG TABLET PO (08:29)
[2021-02-02] MEDS: DULoxetine HCl 60 MG CAPSULE.DR PO (08:29)
[2021-02-02] MEDS: HaloperidoL 1 MG TABLET PO ×2 (08:29→12:10)
[2021-02-02] MEDS: lisinopriL 5 MG TABLET PO (08:29)
[2021-02-02] MEDS: Gabapentin 100 MG CAPSULE PO (08:29)
[2021-02-02 08:33] LABS: MANUAL DIFF FLAG NO
[2021-02-02 08:37] LABS: Basophils Absolute Auto 0.1 X10*3/uL (0.0-0.2); Basophils Percent Auto 0.4 % (0-2); Eosinophils Absolute Auto 0.2 X10*3/uL (0.0-0.4); Eosinophils Percent Auto 1.9 % (0-4); Hemoglobin 15.5 g/dl (12.0-16.0); Imm Gran Abs Auto 0.04 X10*3/uL (0.00-0.03); Imm Gran Pct Auto 0.3 % (0.0-0.4); Lymphocytes Absolute Auto 2.8 X10*3/uL (1.2-4.9); Lymphocytes Percent Auto 23.2 % (20-40); Mean Corpuscular Hemoglobin 29.6 pg (27.0-33.0); Mean Corpuscular Volume 89.7 fL (80.0-98.0); Mean Platelet Volume 9.2 fL (9.4-12.3); Monocytes Percent Auto 8.6 % (2-11); Neutrophils Absolute Auto 7.8 x10*3/uL (2.0-8.3); Neutrophils Percent Auto 65.6 % (45-73); Platelet Count 395 X10*3/uL (160-400); Red Blood Count 5.24 X10*6/uL (4.20-5.50); Red Cell Distribution Width 14.3 % (11.0-16.0)
[2021-02-02 09:17] LABS: Alanine Aminotransferase 28 U/L (0-31); Albumin Level 4.5 g/dL (3.5-5.0); Alkaline Phosphatase 102 U/L (39-117); Anion Gap 14 (12-20); Aspartate Amino Transferase 14 U/L (5-31); Bilirubin Total 0.4 mg/dL (0.0-1.0); Blood Urea Nitrogen 17 mg/dL (9-16); Calcium 9.8 mg/dL (8.4-10.2); Carbon Dioxide 22 mmol/L (22-29); Chloride 107 mmol/L (96-108); Cholesterol 130 mg/dL; Estimated Glomerular Filt Rate > 60; Glucose Random 121 mg/dL (60-115); HDL Cholesterol 32 mg/dL; LDL Cholesterol Calculated 67 mg/dl; Potassium 4.5 mmol/L (3.3-5.1); Sodium 138 mmol/L (135-145); Total Protein 6.9 g/dL (6.5-8.0); Triglycerides 155 mg/dL
[2021-02-02 09:21] LABS: Estimated Average Glucose 120 mg/dL; Hemoglobin A1c % 5.8 %
[2021-02-02 09:38] LABS: Thyroid Stimulating Hormone 3.68 uIU/mL (0.32-4.0)
[2021-02-02 10:01] LABS: Folate 9.2 ng/mL (> or = 4.0); Vitamin B12 231 pg/mL (200-900)
[2021-02-02] MEDS: Fluticasone Propionate Nasal 16 GM SPRAY 2 SPRAY NOSTRIL-B (10:07)
== END 2021-02-02 14:25 | disposition home or self-care (01) | DRG 885 ==
PROVIDERS: Admitting Provider Psychiatry & Neurology Psychiatry; PCP Nurse Practitioner Family; Visit Provider Clinical Nurse Specialist Psychiatric/Mental Health, Adult
DX: F33.2 Major depressive disorder, recurrent severe without psychotic features (principal); R45.851 Suicidal ideations; I10 Essential (primary) hypertension; E03.9 Hypothyroidism, unspecified; I25.2 Old myocardial infarction; F43.10 Post-traumatic stress disorder, unspecified; E78.5 Hyperlipidemia, unspecified; I25.10 Atherosclerotic heart disease of native coronary artery without angina pectoris; F17.210 Nicotine dependence, cigarettes, uncomplicated; Z71.6 Tobacco abuse counseling; Z88.6 Allergy status to analgesic agent; Z79.02 Long term (current) use of antithrombotics/antiplatelets; Z79.51 Long term (current) use of inhaled steroids; Z79.890 Hormone replacement therapy; Z79.899 Other long term (current) drug therapy
CPT/HCPCS: 36415; 80053; 80061; 82607; 82746; 83036; 84443; 85025; 93005